=== PATIENT | male | born 1990 ===

== ENCOUNTER 2016-11-07 21:27 | Emergency (ER) | payer MEDICAID, OTHER ==
[2016-11-07 21:27] VITALS: BMI 19.9
[2016-11-07 21:38] VITALS: BP 108/55; PULSE 77; RESP 15; TEMP 97.9; O2SAT 98
--- NOTE | 2016-11-07 21:46 | ED PDOC ---
HPI: General Adult Time Seen by Provider: 11/07/16 21:39 Chief Complaint (Nursing): Finger,Hand,&Wrist Chief Complaint (Provider): L ring finger pain History Per: Patient Additional Complaint(s): Pt. states for the past week he's had atraumatic pain to the L ring finger. Reports pain is worse in the morning and when he elevates the hand. Denies trauma, weakness, fever, rash. Past Medical History Reviewed: Historical Data, Nursing Documentation, Vital Signs Vital Signs: Last Vital Signs Temp 97.9 F 11/07/16 21:35 Pulse 77 11/07/16 21:35 Resp 15 11/07/16 21:35 BP 108/55 L 11/07/16 21:35 Pulse Ox 98 11/07/16 21:47 - Surgical History Surgical History: Appendectomy (2005) - Family History Family History: States: Unknown Family Hx - Immunization History Hx Tetanus Toxoid Vaccination: Yes - Home Medications Home Medications: Ambulatory Orders Medication Instructions Recorded Naproxen [Naprosyn] 500 mg PO BID PRN #30 tab 11/07/16 - Allergies Allergies/Adverse Reactions: Allergies Allergy/AdvReac Type Severity Reaction Status Date / Time No Known Allergies Allergy Verified 11/07/16 21:38 Review of Systems ROS Statement: Except As Marked, All Systems Reviewed And Found Negative Physical Exam - Physical Exam Appears: Positive for: Well, Non-toxic, No Acute Distress Skin: Positive for: Normal Color, Warm. Negative for: Rash Pulses-Radial (L): 2+ Pulses-Radial (R): 2+ Extremity: Positive for: Normal ROM (actively of L hand including all digits), Capillary Refill (< 2 seconds of L hand), Other (L hand without swelling, tenderness, deformity, break in skin integrity, or rash including all digits. ) - ECG O2 Sat by Pulse Oximetry: 98 - Radiology X-Ray: Interpreted by Me (L hand x-ray) X-Ray Interpretation: No Acute Disease - Progress ED Course And Treament: L hand x-ray ordered. Pt. was offered pain meds but refused. Disposition - Clinical Impression Clinical Impression: Finger pain - Patient ED Disposition Is Patient to be Admitted: No - Disposition Referrals: [facility] [Outside] Marilu Gee MD [Staff Provider] - Disposition: Routine/Home Disposition Time: 22:23 Condition: STABLE Prescriptions: Naproxen [Naprosyn] 500 mg PO BID PRN #30 tab PRN Reason: Pain Instructions: Arthralgia (ED) Print Language: [place]
--- NOTE | 2016-11-08 12:20 | RAD ---
PROCEDURE: Left Hand Radiographs. HISTORY: Posttraumatic left hand pain. COMPARISON: None. FINDINGS: BONES: Normal. No fracture. JOINTS: Normal. No osteoarthritic changes. SOFT TISSUES: Normal. OTHER FINDINGS: None. IMPRESSION: No acute findings related to/accounting for the clinical presentation.
== END 2016-11-07 22:39 | disposition home or self-care (01) ==
LOC: H.ER 21:27
DX: M79.642 Pain in left hand (principal)